=== PATIENT | male | born 1985 | race Hispanic/Latino ===

== ENCOUNTER → 2024-10-08 | Day surgery (SDC) | payer BC, OTHER ==
[2024-09-29 11:55] LABS: BASOPHILS % 0.6 % (0.0-1.0); EOSINOPHILS % 1.2 % (0.0-6.0); LYMPHOCYTES % 29.9 % (18.0-39.1); MONOCYTES % 7.4 % (4.4-11.3); NEUTROPHILS % 60.4 % (38.7-80.0); RED CELL DISTRIBUTION WIDTH 12.5 % (11.7-14.4)
[2024-09-29 12:16] LABS: EST GLOMERULAR FILTRATION RATE 114.0 ML/MIN (>=60)
[~2024-10-08] MED LIST: ACETAMINOPHEN 1000 MG/100 ML 100 ML IV ONE; DEXAMETHASONE SOD PHOS INJ 4 MG/ML SDV ONE; FENTANYL CITRATE/PF 100MCG/2 ML INJ ONE; LIDOCAINE HCL 2% LOCAL INJ 5 ML SDV VIAL INJ ONE; ONDANSETRON HCL INJ 2MG/ML 2ML 2 MG/ML VIAL ONE; PROPOFOL IV EMULSION 10 MG/ML 20 ML VIAL ONE; SEVOFLURANE INHAL SOLN 250 ML PEN BTL ONE
[2024-10-08] MEDS: LACTATED RINGER'S 1,000 ML ONE (08:31)
[2024-10-08] MEDS: HYDROCODONE/APAP 7.5MG-325MG 1 EA TAB ONE (12:20)
[2024-10-08 12:55] VITALS: BP 139/72; PULSE 82; RESP 17; O2SAT 98
== END | disposition home or self-care (01) ==
LOC: OR 07:54
PROVIDERS: ATTEND Surgery
DX: K40.90 Unilateral inguinal hernia, without obstruction or gangrene, not specified as recurrent (principal); D17.6 Benign lipomatous neoplasm of spermatic cord; J45.909 Unspecified asthma, uncomplicated; F17.290 Nicotine dependence, other tobacco product, uncomplicated; E66.01 Morbid (severe) obesity due to excess calories; Z88.8 Allergy status to other drugs, medicaments and biological substances; Z01.812 Encounter for preprocedural laboratory examination
CPT/HCPCS: 36415; 49505; 80048; 85025; C1781; J0131; J1100; J2003; J2405; J2704; J3010; J7121